=== PATIENT | female | born 1995 | race Two or more races ===

== ENCOUNTER → 2017-03-14 | Outpatient (REF) | payer OTHER | LOC: M SFHCLERA 18:57 | PROVIDERS: ATTEND Physician Assistant | DX: R30.0 Dysuria (principal) | CPT/HCPCS: 87086; G0463 ==

== ENCOUNTER 2017-10-07 21:55 | Inpatient (IN) | payer OTHER ==
[2017-10-07] MEDS ORDERED: OXYTOCIN 30 UNITS IN 0.9% NaCl 500ML IV BAG (J2590) As Ordered (22:20)
[2017-10-07 22:45] LABS: HEMATOCRIT 38.5 % (36.0-47.0); HEMOGLOBIN 13.6 g/dl (12.0-16.0); MEAN CORPUSCULAR HEMOGLOBIN 33.7 pg (27.0-33.0); MEAN CORPUSCULAR HGB CONC 35.3 g/dl (32.0-36.5); MEAN CORPUSCULAR VOLUME 95.5 fl (80.0-96.0); PLATELET COUNT, AUTOMATED 242 10^3/uL (150-450); RED BLOOD COUNT 4.03 10^6/uL (4.00-5.40); RED CELL DISTRIBUTION WIDTH 12.8 % (11.5-14.5); WHITE BLOOD COUNT 18.1 10^3/uL (4.0-10.0)
[2017-10-07 23:08] LABS: AMPHETAMINES LEVEL URINE NEGATIVE (NEGATIVE); BARBITURATES URINE NEGATIVE (NEGATIVE); BENZODIAZEPINES URINE NEGATIVE (NEGATIVE); CANNABINOIDS URINE NEGATIVE (NEGATIVE); COCAINE METABOLITE URINE NEGATIVE (NEGATIVE); METHADONE URINE NEGATIVE (NEGATIVE); OPIATES URINE NEGATIVE (NEGATIVE); PHENCYCLIDINE URINE NEGATIVE (NEGATIVE)
[2017-10-07 23:25] LABS: ANION GAP 13 MEQ/L (8-16); BLOOD UREA NITROGEN 7 MG/DL (7-18); CALCIUM LEVEL 8.8 MG/DL (8.5-10.1); CARBON DIOXIDE LEVEL 19 MEQ/L (21-32); CHLORIDE LEVEL 107 MEQ/L (98-107); CREATININE FOR GFR 0.55 MG/DL (0.55-1.30); GLOMERULAR FILTRATION RATE > 60.0 (>60); GLUCOSE, FASTING 83 MG/DL (70-100); POTASSIUM SERUM 3.7 MEQ/L (3.5-5.1); SODIUM LEVEL 139 MEQ/L (136-145)
[2017-10-07] MEDS: LR 1,000 ML IV (23:49)
[2017-10-08 00:52] LABS: HBsAg Prenatal NEGATIVE (NEGATIVE)
[2017-10-08] MEDS ORDERED: METOCLOPRAMIDE INJ 10MG/2ML VIAL (J2765) IV (02:15)
[2017-10-08] MEDS ORDERED: DIBUCAINE 1% OINTMENT 30GM TOP (02:15)
[2017-10-08] MEDS ORDERED: ACETAMINOPHEN TAB 650MG DOSE (2X325MG) PO (02:15)
[2017-10-08] MEDS: OXYTOCIN DRIP 30 UNITS in APPROPRIATE DILUENT 1 EA IV (04:11)
[2017-10-08] MEDS: LIDOCAINE 1% MDV 20ML VIAL INFIL (04:11)
[2017-10-08] MEDS: PRENATAL VITAMINS CHEWABLE TABLET PO (08:45)
[2017-10-08] MEDS: IBUPROFEN 800 MG TAB PO (08:45)
[2017-10-08] MEDS: DOCUSATE SODIUM 100 MG CAP PO ×2 (08:45→20:32)
[2017-10-08 11:06] LABS: RUBELLA IgG QUALITATIVE SUSCEPTIBLE (IMMUNE)
[2017-10-08 12:30] LABS: HIV 1&2 SCREEN CENTAUR NEGATIVE (NEGATIVE)
[2017-10-09] MEDS: IBUPROFEN 800 MG TAB PO (03:15)
[2017-10-09] MEDS: DOCUSATE SODIUM 100 MG CAP PO (09:00)
[2017-10-09] MEDS: PRENATAL VITAMINS CHEWABLE TABLET PO (09:00)
[2017-10-09 12:33] LABS: FETAL SCREEN PROF. 1 1
[2017-10-09] MEDS: RHOGAM 300 MCG (1500 IU) INJ (J2790) IM (12:53)
[2017-10-09] MEDS: MEASLES,MUMPS,RUBELLA VACCINE INJ (MMR-II) (90707) SC (13:03)
== END 2017-10-09 15:01 | disposition home or self-care (01) | DRG 775 ==
LOC: M LDO 21:55 → M OBS 10-08 04:08 → M LDI 22:19
PROVIDERS: Obstetrics & Gynecology; Pediatrics
PROC: 10E0XZZ Delivery of Products of Conception, External Approach (ICD-10-PCS; principal; 2017-10-08)
PROC: 0HQ9XZZ Repair Perineum Skin, External Approach (ICD-10-PCS; 2017-10-08)
DX: O32.6XX0 Maternal care for compound presentation, not applicable or unspecified (principal); Z3A.39 39 weeks gestation of pregnancy; O70.0 First degree perineal laceration during delivery; Z37.0 Single live birth